=== PATIENT | male | born 1945 | race Caucasian/White ===

== ENCOUNTER 2021-10-09 12:02 | Emergency (ER) | payer OTHER, MEDICARE, BC ==
[2021-10-09] MEDS ORDERED: Boostrix 0.5 ML (Tdap) VIAL ONE (12:26)
== END 2021-10-09 12:50 | disposition home or self-care (01) ==
LOC: ERS 12:02
DX: S81.852A Open bite, left lower leg, initial encounter (principal); E78.00 Pure hypercholesterolemia, unspecified; W54.0XXA Bitten by dog, initial encounter
CPT/HCPCS: 90471; 90715

== ENCOUNTER 2022-09-06 11:20 | Outpatient (CLI) | payer MEDICARE, BC ==
[2022-09-06 12:56] LABS: Hemoglobin 13.7 g/dL (13.5-17.5)
[2022-09-06 13:11] LABS: Anion Gap 12 mmol/L (10-20); BUN (Urea Nitrogen) 29 mg/dL (8.4-25.7); Calc. Creatinine Clearance 0 mL/min (70-130); Calcium 9.3 mg/dL (7.8-10.44); Carbon Dioxide 28 mmol/L (23-31); Chloride 104 mmol/L (98-107); Estimated GFR 70; Glucose 91 mg/dL (83-110); Potassium 4.7 mmol/L (3.5-5.1); Sodium 139 mmol/L (136-145)
== END 2022-09-06 11:21 | disposition home or self-care (01) ==
LOC: LABBT 11:20
PROVIDERS: ATTEND Specialist
DX: Z01.818 Encounter for other preprocedural examination (principal)
CPT/HCPCS: 80048; 85014; 85018; 93005; 93010

== ENCOUNTER 2022-09-09 08:19 | Day surgery (SDC) | payer MEDICARE, BC ==
[2022-09-08 14:21] VITALS: BMI 21.2
[2022-09-09] MEDS ORDERED: Bacitracin Zinc Ointment 30 gm TUBE ONE (10:29)
[2022-09-09] MEDS ORDERED: Lidocaine 1% (PF) 30 ML VIAL ONE (10:29)
[2022-09-09] MEDS ORDERED: EPINEPHrine 1 MG/ML AMP ONE (10:29)
[2022-09-09] MEDS ORDERED: fentaNYL PF 100 MCG/2 ML SYRINGE ONE (10:45)
[2022-09-09] MEDS ORDERED: Ondansetron PF 4 MG/2 ML Vial ONE (10:52)
[2022-09-09] MEDS ORDERED: ePHEDrine 50 MG/ML VIAL ONE (10:52)
[2022-09-09] MEDS ORDERED: PROPOFOL 200 MG/20 ML VIAL ONE (10:52)
[2022-09-09] MEDS ORDERED: Dexamethasone 20 MG/5 ML VIAL ONE (10:52)
== END 2022-09-09 14:07 | disposition home or self-care (01) ==
LOC: SDC 08:19
PROVIDERS: ATTEND Specialist
PROC: 09B0XZZ Excision of Right External Ear, External Approach (ICD-10-PCS; principal; 2022-09-09)
DX: C44.222 Squamous cell carcinoma of skin of right ear and external auricular canal (principal); L57.8 Other skin changes due to chronic exposure to nonionizing radiation; E78.00 Pure hypercholesterolemia, unspecified; Z79.899 Other long term (current) drug therapy
CPT/HCPCS: 88305; 88331; 88334; J0171; J1100; J2001; J2405; J2704; J3490

== ENCOUNTER 2023-08-12 13:57 | Outpatient (CLI) | payer MEDICARE, BC | END 2023-08-12 13:58 | disposition home or self-care (01) | LOC: SCSRAD 13:57 | PROVIDERS: ATTEND Family Medicine | DX: M54.50 Low back pain, unspecified (principal); M47.816 Spondylosis without myelopathy or radiculopathy, lumbar region; M51.36 Other intervertebral disc degeneration, lumbar region | CPT/HCPCS: 72100 ==

== ENCOUNTER 2023-08-18 11:16 | Outpatient (CLI) | payer MEDICARE, BC | END 2023-08-18 11:17 | disposition home or self-care (01) | LOC: SCSRAD 11:16 | PROVIDERS: ATTEND Family Medicine | DX: M79.662 Pain in left lower leg (principal) ==

== ENCOUNTER 2023-11-24 13:55 | Outpatient (CLI) | payer MEDICARE | END 2023-11-24 13:56 | disposition home or self-care (01) | LOC: SCSRAD 13:55 | PROVIDERS: ATTEND Family Medicine | DX: M79.644 Pain in right finger(s) (principal); M79.645 Pain in left finger(s); M18.0 Bilateral primary osteoarthritis of first carpometacarpal joints ==

== ENCOUNTER 2024-11-09 07:34 | Day surgery (SDC) | payer MEDICARE ==
[2024-11-06 09:27] VITALS: BMI 23.1
[2024-11-09] MEDS ORDERED: Bacitracin Zinc Ointment 30 gm TUBE ONE (08:25)
[2024-11-09] MEDS ORDERED: Lidocaine 1% MPF 2 ML VIAL ONE (08:32)
[2024-11-09] MEDS ORDERED: CEFAZOLIN 2 GM VIAL ONE (08:32)
[2024-11-09] MEDS ORDERED: fentaNYL 50 mcg/mL 1 mL Vial ONE ×2 (08:46→14:29)
[2024-11-09] MEDS ORDERED: Ropivacaine 0.5% HCl/PF (150 MG/30 ML VIAL) ONE (08:46)
[2024-11-09] MEDS ORDERED: Lidocaine 2% PF 5 ML VIAL ONE (08:46)
[2024-11-09] MEDS ORDERED: PROPOFOL 20 ML ONE (10:10)
[2024-11-09] MEDS ORDERED: Calcium Chloride 1 GM/10 ML Abboject SYRINGE ONE (10:10)
[2024-11-09] MEDS ORDERED: Lidocaine 1% PF 5 ML VIAL ONE (10:19)
[2024-11-09] MEDS ORDERED: ePHEDrine Sulfate 50 MG/10 ML VIAL ONE (10:31)
[2024-11-09] MEDS ORDERED: Dexamethasone 20 MG/5 ML VIAL ONE (13:26)
[2024-11-09] MEDS ORDERED: Ondansetron PF 4 MG/2 ML Vial ONE (13:26)
[2024-11-09] MEDS ORDERED: Ketorolac Tromethamine 30 MG (1 mL) VIAL ONE (14:29)
== END 2024-11-09 16:00 | disposition home or self-care (01) ==
LOC: SDC 07:34
PROVIDERS: ATTEND Orthopaedic Surgery Hand Surgery
PROC: 0RGU04Z Fusion of Right Metacarpophalangeal Joint with Internal Fixation Device, Open Approach (ICD-10-PCS; principal; 2024-11-09)
PROC: 0LX30ZZ Transfer Right Upper Arm Tendon, Open Approach (ICD-10-PCS; 2024-11-09)
PROC: 0JBG0ZZ Excision of Right Lower Arm Subcutaneous Tissue and Fascia, Open Approach (ICD-10-PCS; 2024-11-09)
DX: M18.0 Bilateral primary osteoarthritis of first carpometacarpal joints (principal); D21.11 Benign neoplasm of connective and other soft tissue of right upper limb, including shoulder; M72.1 Knuckle pads; M72.0 Palmar fascial fibromatosis [Dupuytren]; H91.93 Unspecified hearing loss, bilateral; E78.00 Pure hypercholesterolemia, unspecified; N40.0 Benign prostatic hyperplasia without lower urinary tract symptoms; Z98.890 Other specified postprocedural states; Z79.899 Other long term (current) drug therapy; Z90.89 Acquired absence of other organs; Z90.49 Acquired absence of other specified parts of digestive tract
CPT/HCPCS: 25447; 26116; 26516; 64415; 73130; C1713; C1894; J1100; J1885; J2405; J2704; J2795; J3010; 88305; 88341; 88342

== ENCOUNTER 2025-05-23 09:16 | Outpatient (CLI) | payer MEDICARE ==
[2025-05-23 10:04] LABS: #Basophils Less than 0.03 10x3/uL (0.0-0.2); #Eosinophils 0.17 10x3/uL (0.0-0.7); #Monocytes 0.66 10x3/uL (0.11-0.59); #Neutrophils 4.68 10x3/uL (1.40-6.50); %Basophils 0.3 % (0.0-1.0); %Eosinophils 2.5 % (0.0-10.0); %Lymphocytes 17.8 % (21.0-51.0); %Monocytes 9.8 % (0.0-10.0); %Neutrophils 69.5 % (42.0-75.0); Hematocrit 38.4 % (42.0-52.0); Hemoglobin 12.7 g/dL (14.0-18.0); Mean Corpuscular Hemoglobin 31.1 pg (27.0-31.0); Mean Corpuscular Volume 93.9 fL (78.0-98.0); Platelet Count 176 10x3/uL (130-400); Red Blood Cell (RBC) Count 4.09 mill/uL (4.70-6.10); White Blood Cell (WBC) Count 6.74 10x3/uL (4.8-10.8)
[2025-05-23 10:17] LABS: INR-International Normal Ratio 1.1; Prothrombin Time 14.0 sec (12.0-14.7)
[2025-05-23 10:29] LABS: Anion Gap 11 mmol/L (10-20); BUN (Urea Nitrogen) 35 mg/dL (8.4-25.7); Calc. Creatinine Clearance 0 mL/min (70-130); Calcium 8.8 mg/dL (7.8-10.44); Carbon Dioxide 27 mmol/L (23-31); Chloride 105 mmol/L (98-107); Glucose 98 mg/dL (83-110); Potassium 4.3 mmol/L (3.5-5.1); Sodium 139 mmol/L (136-145)
== END 2025-05-23 09:17 | disposition home or self-care (01) ==
LOC: LABBT 09:16
PROVIDERS: ATTEND Orthopaedic Surgery Hand Surgery
DX: Z01.818 Encounter for other preprocedural examination (principal); M18.12 Unilateral primary osteoarthritis of first carpometacarpal joint, left hand
CPT/HCPCS: 80048; 85025; 85610; 87081; 93005; 93010

== ENCOUNTER 2025-06-04 05:50 | Day surgery (SDC) | payer MEDICARE ==
[2025-05-23 09:29] VITALS: BMI 22.7
[2025-06-04] MEDS ORDERED: Bacitracin Zinc Ointment 30 gm TUBE ONE (06:46)
[2025-06-04] MEDS ORDERED: Bupivacaine 0.25% HCL 30 ML VIAL ONE (06:46)
[2025-06-04] MEDS ORDERED: Lidocaine 1% (PF) 30 ML VIAL ONE (06:53)
[2025-06-04] MEDS ORDERED: Ropivacaine 0.5% HCl/PF (150 MG/30 ML VIAL) ONE (06:53)
[2025-06-04] MEDS ORDERED: CEFAZOLIN 2 GM VIAL ONE (07:04)
[2025-06-04] MEDS ORDERED: PROPOFOL 20 ML ONE (07:10)
[2025-06-04] MEDS ORDERED: Ondansetron PF 4 MG/2 ML Vial ONE (07:12)
[2025-06-04] MEDS ORDERED: Ketorolac Tromethamine 30 MG (1 mL) VIAL ONE (07:12)
[2025-06-04] MEDS ORDERED: Lidocaine 1% PF 5 ML VIAL ONE (07:12)
[2025-06-04] MEDS ORDERED: fentaNYL PF 100 MCG/2 ML SYRINGE ONE (10:49)
[2025-06-04] MEDS ORDERED: HYDROcodone/Acetaminophen 5/325 mg Tablet ONE ×2 (10:54→13:06)
== END 2025-06-04 13:30 | disposition home or self-care (01) ==
LOC: SDC 05:50
PROVIDERS: ATTEND Orthopaedic Surgery Hand Surgery
PROC: 0RRT0JZ Replacement of Left Carpometacarpal Joint with Synthetic Substitute, Open Approach (ICD-10-PCS; principal; 2025-06-04)
PROC: 0RGV0JZ Fusion of Left Metacarpophalangeal Joint with Synthetic Substitute, Open Approach (ICD-10-PCS; 2025-06-04)
PROC: 3E0T3BZ Introduction of Anesthetic Agent into Peripheral Nerves and Plexi, Percutaneous Approach (ICD-10-PCS; 2025-06-04)
PROC: 0LX60ZZ Transfer Left Lower Arm and Wrist Tendon, Open Approach (ICD-10-PCS; 2025-06-04)
DX: M18.12 Unilateral primary osteoarthritis of first carpometacarpal joint, left hand (principal); S63.642A Sprain of metacarpophalangeal joint of left thumb, initial encounter; Z90.49 Acquired absence of other specified parts of digestive tract; Z98.41 Cataract extraction status, right eye; Z98.42 Cataract extraction status, left eye; Z90.89 Acquired absence of other organs; X58.XXXA Exposure to other specified factors, initial encounter
CPT/HCPCS: 25310; 25332; 26516; 64415; 73130; C1713; J0169; J0665; J1885; J2250; J2405; J2704; J2795; J3010